=== PATIENT | female | born 1945 | race Caucasian/White ===

== ENCOUNTER 2021-09-25 11:16 | Emergency (ER) | payer OTHER ==
[~2021-09-25] VITALS: Ht 152.4 cm; Wt 86.2 kg
[~2021-09-25 11:16] MED LIST: AMLODIPINE BESY10 MG PO; CARVEDILOL25 MG PO; IBUPROFEN 200200 M1 PO; KEFLEX500 M1 PO; LISINOPRIL20 MG PO; MEDROLDOSEPACK PO; TRAMADOL 50 MG50 MG PO; ZOFRAN ODT4 MG PO
[2021-09-25 12:16] LABS: BASOPHILS 0.3 % (0.0-2.0); EOSINOPHILS 0.7 % (0.0-3.0); HEMATOCRIT 37.3 % (37.0-47.0); HEMOGLOBIN 12.2 gm/dL (12.0-15.0); LYMPHOCYTES 11.4 % (24.0-44.0); MCH 29.3 pg (26.0-34.0); MCHC 32.8 g/dL (28.0-37.0); MCV 89.5 fL (80.0-100.0); MONOCYTES 16.8 % (1.0-8.0); PLATELET COUNT 187 thou/uL (150-400); POLYS 70.8 % (36.0-66.0); RBC 4.17 mil/uL (4.20-5.00)
[2021-09-25 12:19] LABS: CREATININE 0.9 mg/dL (0.6-1.0)
[2021-09-25 12:21] LABS: POTASSIUM 4.7 mmol/L (3.5-5.1)
[2021-09-25 12:29] LABS: ALBUMIN 3.3 g/dL (3.4-5.0); TOTAL BILIRUBIN 0.9 mg/dL (0.2-1.0)
[2021-09-25] MEDS ORDERED: DECADRON6 MG PO (13:58)
[2021-09-25 14:05] VITALS: BP 159/76
--- NOTE | 2021-09-26 10:00 | EKG ---
[place] [address] [facility] [place] [address] ELECTROCARDIOGRAM REPORT Name: LEI FRIED Room #: [facility] Arreola#: [id number] Admission: 09/25/21 Attend Phys: Discharge: 09/25/21 Date of : 49 Report #: [id number] [facility] ED Test Date: 2021-09-25 Test Time: 11:27:11 Pat Name: LEI FRIED Department: Room: Gender: F Database Consultant: TONJA : 1945 Requested By: Fritz Cisneros Order Number: [id number] MD: Ry Jain Measurements Intervals [place] Rate: 75 P: 15 OR: 180 QRS: 2 QRSD: 117 T: 21 QT: 394 QTc: 441 Interpretive Statements Sinus rhythm Left ventricular hypertrophy Compared to ECG 03/30/2014 01:58:01 Left ventricular hypertrophy now present Electronically Signed On 09-26-2021 10:00:02 [employer] by Ry Jain [email or web address] <ELECTRONICALLY SIGNED> By: Ry Jain MD 09/26/21 1000 [id number] Ry Jain MD /EPI
== END 2021-09-25 14:15 | disposition home or self-care (01) ==
LOC: ER 11:16
PROVIDERS: Emergency Medicine
DX: J18.9 Pneumonia, unspecified organism (principal); Z20.822 Contact with and (suspected) exposure to COVID-19; I10 Essential (primary) hypertension; Z79.891 Long term (current) use of opiate analgesic; Z79.899 Other long term (current) drug therapy